=== PATIENT | female | born 1955 | race Caucasian/White ===

== ENCOUNTER → 2019-05-10 | Outpatient (CLI) | payer MEDICARE ==
[~2019-05-10] MED LIST: CRUTCH3 USE; HYDACE5 PO; IBUP200 PO; IBUP400 PO; LORA1 PO; MELATONIN10 MG PO; NAPR500 PO; OMEP20ER PO; OXYACE5T PO; TRAZ50 PO; VITAMIN K; ZOLP10 PO; ZOLP5 PO
== END | disposition home or self-care (01) ==
LOC: LAB EV 08:25 → LAB SHORT 08:25
DX: N39.0 Urinary tract infection, site not specified (principal)
CPT/HCPCS: 87086

== ENCOUNTER → 2020-09-15 | Outpatient (CLI) | payer OTHER ==
[~2020-09-15] MED LIST changes: +KETOPROFEN; +LIDO; +MELATONIN1010 PO; +Macrobid 100 M100 MG PO; +[UNRECOGNIZED DRUG - OTHER]
== END ==
LOC: LAB SHORT 18:56 → LAB EV 18:56
DX: N39.0 Urinary tract infection, site not specified (principal)
CPT/HCPCS: 87086

== ENCOUNTER → 2020-09-21 | Outpatient (CLI) | payer OTHER | LOC: PLD 12:58 → LAB SHORT 12:58 | DX: R19.7 Diarrhea, unspecified (principal); R11.0 Nausea; R10.9 Unspecified abdominal pain | CPT/HCPCS: 87015; 87045; 87046; 87177; 87205; 87209; 87493; 87899 ==

== ENCOUNTER 2020-10-24 12:12 | Emergency (ER) | payer OTHER ==
[~2020-10-24] VITALS: Ht 162.6 cm; Wt 72.1 kg
[~2020-10-24 12:12] MED LIST changes: -KETOPROFEN; -LIDO; -MELATONIN1010 PO; -Macrobid 100 M100 MG PO; -[UNRECOGNIZED DRUG - OTHER]
[2020-10-24 12:40] LABS: BASOPHILS ABSOLUTE AUTO 0.03 K/mm3 (0.00-0.23); BASOPHILS PERCENT AUTO 1 % (0-2); EOSINOPHILS ABSOLUTE AUTO 0.07 K/mm3 (0.00-0.68); EOSINOPHILS PERCENT AUTO 1 % (0-6); Hematocrit 44.5 % (33.0-51.0); Hemoglobin 14.7 g/dL (11.5-16.0); IMMATURE GRAN ABSOLUTE AUTO 0.03 K/mm3 (0.00-0.10); IMMATURE GRAN PERCENT AUTO 1 % (0-1); LYMPHOCYTES ABSOLUTE AUTO 1.09 K/mm3 (0.84-5.20); LYMPHOCYTES PERCENT AUTO 19 % (21-46); MONOCYTES ABSOLUTE AUTO 0.32 K/mm3 (0.16-1.47); MONOCYTES PERCENT AUTO 6 % (4-13); Mean Corpuscular HGB 31.4 pg (26.0-34.0); Mean Corpuscular Volume 95 fL (80-100); Mean Platelet Volume 10.7 fL (9.1-12.4); NEUTROPHILS ABSOLUTE AUTO 4.15 K/mm3 (1.96-9.15); NEUTROPHILS PERCENT AUTO 73 % (41-73); Platelet Count 218 K/mm3 (150-400); RDW Coefficient Variation 11.9 % (11.7-14.2); RDW Standard Deviation 41.1 fL (35.1-46.3); Red Blood Cell Count 4.68 M/mm3 (3.80-5.20); White Blood Cell Count 5.69 K/mm3 (4.00-11.30)
[2020-10-24 13:02] LABS: Alanine Aminotransfer (ALT/SGP 43 U/L (12-78); Albumin, Blood 4.2 g/dL (3.4-5.0); Albumin/Globulin Ratio 1.1 (0.8-1.8); Alk Phos 123 U/L (50-136); Anion Gap 5 mmol/L (6-16); Aspartate Aminotrans (AST/SGOT 32 U/L (12-37); Bilirubin, Total 0.4 mg/dL (0.1-1.0); Blood Urea Nitrogen 13 mg/dL (8-24); CO2, Blood 27 mmol/L (21-32); Calcium, Blood 9.8 mg/dL (8.5-10.1); Chloride, Blood 106 mmol/L (98-108); Creatinine, Blood 0.72 mg/dL (0.40-1.00); Globulin, Blood 3.8 g/dL (2.2-4.0); Glomerular Filtration Rate >60 (60-); Glucose, Blood 93 mg/dL (70-99); Potassium, Blood 4.2 mmol/L (3.5-5.5); Sodium, Blood 138 mmol/L (136-145)
[2020-10-24 15:09] LABS: Source, Urine Clean Catch
[2020-10-24 15:25] LABS: Appearance, Urine Hazy (Clear); Bilirubin, Urine Neg (Neg); Blood, Urine 1+ (Neg); Color, Urine Yellow (P-Yellow); Glucose Qualitative, Urine Neg (Neg); Ketones, Urine 2+ (Neg); Leukocyte Esterase, Urine 3+ (Neg); Nitrite, Urine Neg (Neg); Protein, Urine Neg (Neg); Specific Gravity, Urine 1.015 (1.003-1.022); Urobilinogen, Urine NORM (Normal)
[2020-10-24 15:45] LABS: Bacteria Rare /hpf; Red Blood Cells, Urine 0-2 /hpf (0-2); Squamous Epithelial Cells Few /hpf (Few); White Blood Cells, Urine 25-50 /hpf (0-5)
[2020-10-24] MEDS ORDERED: Macrobid 100 M100 MG PO (16:11)
[2020-12-10] MEDS ORDERED: OMEP20ER PO (14:03)
[2020-12-10] MEDS ORDERED: IBUP200 PO (14:03)
[2020-12-10] MEDS ORDERED: TRAZ50 PO (14:03)
[2020-12-10] MEDS ORDERED: MELATONIN1010 PO (14:04)
[2020-12-10] MEDS ORDERED: KETOPROFEN (14:05)
[2020-12-10] MEDS ORDERED: LIDO (14:05)
[2020-12-10] MEDS ORDERED: [UNRECOGNIZED DRUG - OTHER] (14:05)
== END 2020-10-24 16:16 | disposition home or self-care (01) ==
LOC: ER 12:12
PROVIDERS: Physician Assistant
DX: N39.0 Urinary tract infection, site not specified (principal); Z79.899 Other long term (current) drug therapy
CPT/HCPCS: 36415; 74177; 80053; 81001; 83690; 85025; 87086; 99284-25; Q9967

== ENCOUNTER 2020-12-17 11:11 | Day surgery (SDC) | payer OTHER ==
[~2020-12-17] VITALS: Ht 162.6 cm; Wt 70.9 kg
[~2020-12-17 11:11] MED LIST changes: +KETOPROFEN; +LIDO; +MELATONIN1010 PO; +Macrobid 100 M100 MG PO; +[UNRECOGNIZED DRUG - OTHER]
--- NOTE | 2020-12-17 12:05 | NUR ---
12/17/20 Emil5 Janis Salazar 1 try right hand valve 2 try right ac no flash
== END 2020-12-17 14:53 | disposition home or self-care (01) ==
LOC: ORSCSDS 11:11
PROVIDERS: Internal Medicine Gastroenterology
PROC: 0DB98ZX Excision of Duodenum, Via Natural or Artificial Opening Endoscopic, Diagnostic (ICD-10-PCS; principal; 2020-12-17 12:30)
PROC: 0DBL8ZX Excision of Transverse Colon, Via Natural or Artificial Opening Endoscopic, Diagnostic (ICD-10-PCS; principal; 2020-12-17 12:30)
PROC: 0DB78ZX Excision of Stomach, Pylorus, Via Natural or Artificial Opening Endoscopic, Diagnostic (ICD-10-PCS; principal; 2020-12-17 12:30)
PROC: 0DBE8ZX Excision of Large Intestine, Via Natural or Artificial Opening Endoscopic, Diagnostic (ICD-10-PCS; principal; 2020-12-17 12:30)
DX: K52.9 Noninfective gastroenteritis and colitis, unspecified (principal); R10.9 Unspecified abdominal pain; R11.0 Nausea; K31.7 Polyp of stomach and duodenum; D12.3 Benign neoplasm of transverse colon; K21.9 Gastro-esophageal reflux disease without esophagitis; K57.30 Diverticulosis of large intestine without perforation or abscess without bleeding; K64.8 Other hemorrhoids; Z79.899 Other long term (current) drug therapy
CPT/HCPCS: 88305; 88342; J2405; J2704; J7120

== ENCOUNTER → 2021-03-12 | Outpatient (CLI) | payer OTHER | END | disposition home or self-care (01) | LOC: LAB SHORT 16:41 | DX: N39.0 Urinary tract infection, site not specified (principal) | CPT/HCPCS: 87086 ==

== ENCOUNTER → 2021-03-25 | Outpatient (CLI) | payer OTHER | END | disposition home or self-care (01) | LOC: LAB SHORT 14:39 → LAB 14:39 | DX: N39.0 Urinary tract infection, site not specified (principal) | CPT/HCPCS: 87086 ==

== ENCOUNTER 2022-09-25 15:04 | Emergency (ER) | payer OTHER ==
[~2022-09-25] VITALS: Ht 162.6 cm; Wt 72.6 kg
[2022-09-25] MEDS ORDERED: TRAZ50 PO (18:26)
[2022-09-25 18:44] LABS: BASOPHILS ABSOLUTE AUTO 0.02 K/mm3 (0.00-0.23); BASOPHILS PERCENT AUTO 0 % (0-2); EOSINOPHILS PERCENT AUTO 0 % (0-6); Hematocrit 38.8 % (33.0-51.0); Hemoglobin 13.4 g/dL (11.5-16.0); IMMATURE GRAN ABSOLUTE AUTO 0.02 K/mm3 (0.00-0.10); IMMATURE GRAN PERCENT AUTO 0 % (0-1); LYMPHOCYTES ABSOLUTE AUTO 0.39 K/mm3 (0.84-5.20); LYMPHOCYTES PERCENT AUTO 5 % (21-46); MONOCYTES ABSOLUTE AUTO 0.22 K/mm3 (0.16-1.47); MONOCYTES PERCENT AUTO 3 % (4-13); Mean Corpuscular HGB 31.5 pg (26.0-34.0); Mean Corpuscular HGB Conc 34.5 g/dL (31.5-36.5); Mean Corpuscular Volume 91 fL (80-100); Mean Platelet Volume 10.8 fL (9.1-12.4); NEUTROPHILS ABSOLUTE AUTO 6.56 K/mm3 (1.96-9.15); NEUTROPHILS PERCENT AUTO 91 % (41-73); Platelet Count 168 K/mm3 (150-400); RDW Coefficient Variation 11.9 % (11.7-14.2); RDW Standard Deviation 39.7 fL (35.1-46.3); Red Blood Cell Count 4.25 M/mm3 (3.80-5.20); White Blood Cell Count 7.21 K/mm3 (4.00-11.30)
[2022-09-25 19:02] LABS: Albumin, Blood 3.8 g/dL (3.4-5.0); Albumin/Globulin Ratio 1.1 (0.8-1.8); Bilirubin, Total 0.6 mg/dL (0.1-1.0); Bun/Creatinine Ratio 18.2 (12.0-20.0); Calcium, Blood 9.4 mg/dL (8.5-10.1); Creatinine, Blood 0.77 mg/dL (0.40-1.00); Globulin, Blood 3.5 g/dL (2.2-4.0); Potassium, Blood 3.7 mmol/L (3.5-5.5); Total Protein, Blood 7.3 g/dL (6.4-8.2)
[2022-09-25 21:25] LABS: Source, Urine Clean Catch
[2022-09-25 21:28] LABS: Bilirubin, Urine Neg (Neg); Blood, Urine 5+ (Neg); Glucose Qualitative, Urine Neg (Neg); Ketones, Urine 4+ (Neg); Leukocyte Esterase, Urine 3+ (Neg); Nitrite, Urine Neg (Neg); Protein, Urine 1+ (Neg); Urobilinogen, Urine NORM (Normal)
[2022-09-25 21:34] LABS: Appearance, Urine Clear (Clear); Color, Urine Yellow (P-Yellow)
[2022-09-25 21:35] LABS: Amorphous Light (0-Heavy); Bacteria Few /hpf; Mucus Light (0-Heavy); Red Blood Cells, Urine 50-100 /hpf (0-2); Squamous Epithelial Cells Few /hpf (Few)
[2022-09-25] MEDS ORDERED: ONDA4ODT MM (21:39)
== END 2022-09-25 21:51 | disposition home or self-care (01) ==
LOC: ER 15:04
PROVIDERS: Physician Assistant; Student in an Organized Health Care Education/Training Program
DX: R10.9 Unspecified abdominal pain (principal); K58.9 Irritable bowel syndrome, unspecified; Z88.8 Allergy status to other drugs, medicaments and biological substances; Z79.899 Other long term (current) drug therapy
CPT/HCPCS: 36415; 51798; 74176; 80053; 81001; 85025; 87086; J1885; J2405; J7030

== ENCOUNTER → 2022-10-25 | Outpatient (CLI) | payer OTHER ==
[~2022-10-25] MED LIST changes: +ONDA4ODT MM
[2022-10-25 12:19] LABS: Uric Acid, Urine 21.3 mg/dL (7.5-49.5)
== END ==
LOC: LAB 10:47 → LAB SHORT 10:47
PROVIDERS: Physician Assistant
DX: Z87.442 Personal history of urinary calculi (principal)
CPT/HCPCS: 81050; 82340; 84560

== ENCOUNTER 2023-03-09 07:51 | Emergency (ER) | payer OTHER ==
[~2023-03-09] VITALS: Ht 162.6 cm; Wt 66.2 kg
[2023-03-09 09:04] VITALS: BP 164/74
[2023-03-09] MEDS ORDERED: HYDR1TAB94 PO (11:58)
== END 2023-03-09 12:22 | disposition home or self-care (01) ==
LOC: ER 07:51
DX: S52.132A Displaced fracture of neck of left radius, initial encounter for closed fracture (principal); S01.81XA Laceration without foreign body of other part of head, initial encounter; S06.6XAA Traumatic subarachnoid hemorrhage with loss of consciousness status unknown, initial encounter; W10.9XXA Fall (on) (from) unspecified stairs and steps, initial encounter; Z79.899 Other long term (current) drug therapy; Z88.6 Allergy status to analgesic agent; Y92.009 Unspecified place in unspecified non-institutional (private) residence as the place of occurrence of the external cause
CPT/HCPCS: 12013; 29105; 70450; 73080; 73090; 90471; 90714; 99284-25; A9270

== ENCOUNTER 2025-03-25 07:56 | Day surgery (SDC) | payer OTHER ==
[~2025-03-25] VITALS: Ht 160 cm; Wt 68.5 kg
[2025-03-25] VITALS (13 sets, daily range): BP systolic 103–1065; BP diastolic 7–85
[~2025-03-25 07:56] MED LIST changes: +Bupivacaine 0.5% HCl 5 MG/ML 30MLVIAL ONE; +CeFAZolin Sodium 2,000 MG in NS 100 ML IV SCH; +Chlorhexidine Mouth Care 15 ML UDC MT SCH; +Dexamethasone Sod Phos 10 MG/ML 1ML VIAL ONE; +FentaNYL Citrate 50 MCG/ML 2 ML Injection ONE; +HYDR1TAB94 PO; +Ondansetron HCl 2 MG / ML 2ML Vial ONE; +Ropivacaine 0.5% HCl/Pf 123.125 MG,EPINEPHrine HCL 0.25 MG,Ketorolac Tromethamine 15 MG... INFIL SCH; +Tranexamic Acid 100 ML IV SCH; +VITAMIN D PO
[2025-03-25] MEDS ORDERED: Albuterol 2.5 MG/3 ML VIAL INH PRN (08:25)
[2025-03-25] MEDS ORDERED: Ondansetron HCl 2 MG / ML 2ML Vial IV PRN ×2 (08:25→12:20)
[2025-03-25] MEDS ORDERED: Midazolam HCl 1MG / ML 2ML Vial IV ONE (08:25)
[2025-03-25] MEDS ORDERED: Citric Acid/Sodium Citrate 30 ML BTL PO ONE (08:25)
[2025-03-25] MEDS ORDERED: FentaNYL Citrate 50 MCG/ML 2 ML Injection IV PRN ×3 (08:25→08:30)
--- NOTE | 2025-03-25 08:36 | NUR ---
PATIENT'S ANESTHESIA RECORD FROM 2017 SHOWS PATIENT GIVEN TORADOL. PATIENT DENIES KNOWLEDGE OF HAVING A REACTION TO TORADOL. SPOKE TO DR SAM AND DR YOUNGER AND BOTH AGREED TO PROCEED WITH TORADOL IN JOINT COCKTAIL SO LONG PATIENT DENIED REACTION TO TORADOL, DESPITE ALLERGY TO MELOXICAM IN PAST.
[2025-03-25] MEDS ORDERED: Midazolam HCl 1MG / ML 2ML Vial ONE (08:50)
[2025-03-25] MEDS ORDERED: Glycopyrrolate 0.2 MG/ML 5ML VIAL ONE (10:37)
[2025-03-25] MEDS ORDERED: Magnesium Hydroxide Conc 10 ML UDC PO PRN (12:15)
[2025-03-25] MEDS ORDERED: Metoclopramide HCl 5MG / ML 2ML Vial IV PRN (12:15)
[2025-03-25] MEDS ORDERED: HYDROmorphone HCl/Pf 1MG SYR IV PRN (12:15)
--- NOTE | 2025-03-25 13:01 | NUR ---
ARRIVAL TO UNIT AFTER RECEIVING REPORT FROM PROCESS DEVELOPMENT TECHNICIAN, PATIENT TRANSFERRED TO UNIT VIA BED AT APPROX 1250. PATIENT ALERT AND ORIENTED X4. COMMUNICATING NEEDS EFFECTIVELY. S/P R TKA W/ SPINAL - DECREASED SENSATION, UNABLE TO WIGGLE TOES. CAP REFILL <3 SECONDS. PPP. DENIES PAIN. VSS. TEFLA/TEGADERM DX W/ RASHMI WRAP C/D/I - NO SHADOWING NOTED ON RASHMI WRAP. COOLING DEVICE IN PLACE. DENIES N/V - SMALL SNACKS AND WATER WITHIN REACH. FAMILY AT BEDSIDE. CALL LIGHT IN REACH.
[2025-03-25] MEDS ORDERED: ASPI81CH PO (13:15)
--- NOTE | 2025-03-25 14:00 | NUR ---
REPORT GIVEN TO MISSAEL VINSON TO ASSUME CARE AT THIS TIME
--- NOTE | 2025-03-25 14:50 | NUR ---
ASSUMPTION OF CARE 1400 PT AXO4. VSS. NERVE BLOCK STILL IN EFFECT - NO MOVEMENT/SENSATION TO R LEG AT THIS TIME. PT TOLERATING PO INTAKE WELL. SPOUSE IN ROOM. POLARPACK IN PLACE. NO QUESTIONS AT THIS TIME.
--- NOTE | 2025-03-25 15:00 | NUR ---
Pt. is awake in bed when she welcomes my visit. Pt. is pleasant. Spouse is at bedside. Facilitated a life review and listened with interest and empathy. Pt. dislpays evidence of being fully engaged and aware and she shared her prognosis. Sought to normalize the Pt. experience. Pt. and spouse both displayed evidene of understanding and agreement. Prayed with Pt. Pt. verbalized gratitude for the spiritual care visit.
[2025-03-25] MEDS ORDERED: CeFAZolin Sodium 2,000 MG in NS 100 ML IV SCH (18:00)
--- NOTE | 2025-03-25 18:36 | NUR ---
END OF SHIFT POST ASSUMPTION OF CARE, NO ACUTE CHANGES NOTED. PT REMAINS AXO4, VSS. SPOUSE IN ROOM. PAIN MEDS PER EMAR EFFECTIVE AT DIMINISHING PAIN TO TOLERABLE LEVEL. NERVE BLOCK EFFECTS STILL ACTIVE BUT, PER PT, LESSENING, CAN FEEL BOTTOM OF FOOT NOW BUT IS STLL STRUGGLING TO LIFT LEG OFF OF MATTRESS. HAS NOT VOIDED YET, PT STATES SHE THINKS THIS WILL HAPPEN "SOON." TELFA/TEGADERM DRESSING CDI TO R KNEE. POLARPACK IN PLACE. IV ABX INFUSING CURRENTLY. PT TOLERATING PO INTAKE - REQUIRED PRN TUMS. OTHERWISE, PT RESTING IN ROOM - AWARE OF PLAN FOR OVERNIGHT STAY R/T NERVE BLOCK EFFECTS - EDUCATED SHE COULD DC LATER THIS EVENING IF ABLE TO SAFELY AMBULATE WITH STAFF AND VOID WHEN NERVE BLOCK EFFECTS WEAR OFF.
[2025-03-26 03:55] VITALS: BP 126/57
[2025-03-26 05:08] LABS: BASOPHILS ABSOLUTE AUTO 0.01 K/mm3 (0.00-0.23); BASOPHILS PERCENT AUTO 0 % (0-2); EOSINOPHILS ABSOLUTE AUTO 0.01 K/mm3 (0.00-0.68); EOSINOPHILS PERCENT AUTO 0 % (0-6); Hematocrit 31.6 % (33.0-51.0); Hemoglobin 10.8 g/dL (11.5-16.0); IMMATURE GRAN ABSOLUTE AUTO 0.01 K/mm3 (0.00-0.10); IMMATURE GRAN PERCENT AUTO 0 % (0-1); LYMPHOCYTES ABSOLUTE AUTO 0.77 K/mm3 (0.84-5.20); LYMPHOCYTES PERCENT AUTO 11 % (21-46); MONOCYTES ABSOLUTE AUTO 0.56 K/mm3 (0.16-1.47); MONOCYTES PERCENT AUTO 8 % (4-13); Mean Corpuscular HGB Conc 34.2 g/dL (31.5-36.5); Mean Corpuscular Volume 93 fL (80-100); NEUTROPHILS ABSOLUTE AUTO 5.87 K/mm3 (1.96-9.15); NEUTROPHILS PERCENT AUTO 81 % (41-73); NRBC ABSOLUTE 0.00 K/mm3 (0.00-0.02); NRBC Auto 0.0 /100 WBC (0.0-0.2); Platelet Count 151 K/mm3 (150-400); RDW Coefficient Variation 11.9 % (11.7-14.2); RDW Standard Deviation 41.1 fL (35.1-46.3)
--- NOTE | 2025-03-26 05:31 | NUR ---
SHIFT SUMMARY POD 1 S/P RIGHT KNEE. DRESSING AND RASHMI WRAP CDI WITH POLAR PACK IN PLACE. PAIN MANAGED WITH 1-2 OXY PRN. OLESYA SMALL AMOUNT OF PO INTAKE. AMB WITH SBA, FWW, GB TO BATHROOM- OLESYA WELL. ABX INFUSED PER ORDER, IV PATENT AND SL. PLAN TO WORK WITH THERAPY TODAY. PT CURRENTLY RESTING IN BED WITH EYES CLOSED AND RESP EVEN/UNLABORED. HAS CALL LIGHT IN REACH. WILL GIVE REPORT TO ONCOMING RN.
[2025-03-26 05:37] LABS: Anion Gap 6.0 mmol/L (3-11); Blood Urea Nitrogen 15.0 mg/dL (8-24); CO2, Blood 29.0 mmol/L (21-32); Calcium, Blood 9.1 mg/dL (8.5-10.1); Chloride, Blood 104.0 mmol/L (98-108); Creatinine, Blood 0.8 mg/dL (0.40-1.00); Glucose, Blood 119.0 mg/dL (70-99); Potassium, Blood 4.1 mmol/L (3.5-5.5); Sodium, Blood 135.0 mmol/L (136-145)
[2025-03-26 07:25] VITALS: BP 120/57
[2025-03-26] MEDS ORDERED: Cholecalciferol 1000 Unit Tablet (=25MCG) PO SCH (09:00)
--- NOTE | 2025-03-26 10:14 | NUR ---
DISCHARGE NOTE POD 1 L SARAH. VSS. PAIN MANAGED W/ PRESCRIBED MEDICATION AND COOLING DEVICE. TEFLA/TEGADERM DX C/D/I W/ RASHMI WRAP - NO SHADOWING NOTED. TOLERATING PO INTAKE. X1 EPISODE OF GENERALIZED NAUSEA - NO VOMITING. MEDICATED PER EMAR W/ IV ZOFRAN. PATIENT PRESCRIBED ZOFRAN FOR NAUSEA MANAGEMENT AT HOME PER MD. VOIDING. THERAPY EVAL COMPLETED THIS MORNING - PATIENT AMBULATING W/ SBA FWW GB. IV REMOVED. WRITTEN AND VERBAL EDUCATION PROVIDED - PATIENT AND HER SPOUSE STATE UNDERSTANDING. PERSONAL BELONGINGS W/ PATIENTs SPOUSE. PATIENT TRANSFERRED TO PERSONAL VEHICLE VIA AT APPROX 1012.
== END 2025-03-26 10:18 | disposition home or self-care (01) ==
LOC: ORSCMMR 07:56 → SURS 12:44 → ORSCMMR 03-26 10:18
PROVIDERS: Orthopaedic Surgery
PROC: 0SRC0JA Replacement of Right Knee Joint with Synthetic Substitute, Uncemented, Open Approach (ICD-10-PCS; principal; 2025-03-26)
DX: M17.11 Unilateral primary osteoarthritis, right knee (principal); Z87.891 Personal history of nicotine dependence; K21.9 Gastro-esophageal reflux disease without esophagitis; Z79.82 Long term (current) use of aspirin; Z79.899 Other long term (current) drug therapy
CPT/HCPCS: 36415; 73560-RT; 80048; 85025; 97116; 97162; 97530; A9270; C1713; C1776; J0165; J0690; J0735; J1100; J1885; J2250; J2405; J2704; J2795; J3010; J7120

== ENCOUNTER 2025-04-29 11:13 | Day surgery (SDC) | payer OTHER ==
[~2025-04-29] VITALS: Ht 162.6 cm; Wt 65.4 kg
[~2025-04-29 11:13] MED LIST changes: +ASPI81CH PO; -Bupivacaine 0.5% HCl 5 MG/ML 30MLVIAL ONE; -CeFAZolin Sodium 2,000 MG in NS 100 ML IV SCH; -Chlorhexidine Mouth Care 15 ML UDC MT SCH; -Dexamethasone Sod Phos 10 MG/ML 1ML VIAL ONE; -FentaNYL Citrate 50 MCG/ML 2 ML Injection ONE; -Ondansetron HCl 2 MG / ML 2ML Vial ONE; -Ropivacaine 0.5% HCl/Pf 123.125 MG,EPINEPHrine HCL 0.25 MG,Ketorolac Tromethamine 15 MG... INFIL SCH; -Tranexamic Acid 100 ML IV SCH
--- NOTE | 2025-04-29 12:00 | NUR ---
INTO SDS VIA WHEELCHAIR. PT REPORTS 4/10 RIGHT KNEE PAIN. PT TOOK A OXYCODONE THIS AM FOR 8/10 RIGHT KNEE PAIN. HISTORY AND ALLERGIES REVIEWED. LUNGS CLEAR. VS WDL. NPO STATUS CONFIMED.PT SPOUSE JERO IS HER RIDE HOME TODAY. PT BELONGINGS IN BAG BELOW [employer].
[2025-04-29 12:08] VITALS: BP 143/77
[2025-04-29] MEDS ORDERED: Ketorolac Tromethamine 30mg Vial ONE (12:12)
[2025-04-29] MEDS ORDERED: FentaNYL Citrate 50 MCG/ML 2 ML Injection ONE (12:12)
[2025-04-29] MEDS ORDERED: OXYC5 PO (12:21)
[2025-04-29] MEDS ORDERED: OxyCODONE 5 mg/Acetamin 325 mg TABLET PO PRN (14:35)
--- NOTE | 2025-04-29 14:42 | NUR ---
04/29/25 1442 Rach Romo NO PREOP ANTIBIOTICS ORDERED PER .
[2025-04-29] MEDS ORDERED: FentaNYL Citrate 50 MCG/ML 2 ML Injection IV PRN ×2 (14:50→14:55)
[2025-04-29] MEDS ORDERED: Ondansetron HCl 2 MG / ML 2ML Vial IV PRN (14:50)
[2025-04-29] MEDS ORDERED: Albuterol 2.5 MG/3 ML VIAL INH PRN (14:50)
[2025-04-29] MEDS ORDERED: Dexamethasone Sodium Phosphate 4 MG/ML 1ML Vial IV PRN (14:55)
[2025-04-29] MEDS ORDERED: HYDROmorphone HCl/Pf 1MG SYR IV PRN ×2 (14:55)
[2025-04-29 15:00] VITALS: BP 136/75
[2025-04-29 15:15] VITALS: BP 149/85
[2025-04-29 15:45] VITALS: BP 152/76
--- NOTE | 2025-04-29 16:18 | NUR ---
TO STEP POST KNEE MANIPULATION. VERY PAINFUL, 9/10 RIGHT KNEE. ICE APPLIED, 50MCG FENTANYL GIVEN ORDERED. 1 PERCOCET GIVEN. PT TO RESUME HOME PAIN MEDS. OLESYA PO WELL. DC'D IV INTACT. UP WITH FWW FOR SUPPORT. DC'D VIA WC TO PRIVATE CAR WITH WARP SPINNER.
== END 2025-04-29 16:00 | disposition home or self-care (01) ==
LOC: ORD 11:13 → ORSCMMR 11:13 → ORD 16:00
PROVIDERS: Orthopaedic Surgery
PROC: 0SNCXZZ Release Right Knee Joint, External Approach (ICD-10-PCS; principal; 2025-04-29 15:30)
DX: T84.82XA Fibrosis due to internal orthopedic prosthetic devices, implants and grafts, initial encounter (principal); Z96.651 Presence of right artificial knee joint; I10 Essential (primary) hypertension; Z79.899 Other long term (current) drug therapy; Z87.891 Personal history of nicotine dependence
CPT/HCPCS: 73560-RT; A9270; J1885; J2704; J3010; J7120

== ENCOUNTER → 2025-07-13 | Outpatient (CLI) | payer OTHER ==
[~2025-07-13] MED LIST changes: +OXYC5 PO
== END ==
LOC: LAB 12:42 → LAB SHORT 12:42
DX: N39.0 Urinary tract infection, site not specified (principal); R31.9 Hematuria, unspecified
CPT/HCPCS: 87086